=== PATIENT | female | born 1975 | race Caucasian/White ===

== ENCOUNTER 2025-01-26 12:10 | Outpatient (CLI) | payer OTHER, SELFPAY | END 2025-01-26 12:11 | disposition home or self-care (01) | LOC: AMB 02-14 04:08 | PROVIDERS: Visit Provider Family Medicine | DX: S39.91XA Unspecified injury of abdomen, initial encounter (principal); V43.63XA Car passenger injured in collision with pick-up truck in traffic accident, initial encounter; Y92.410 Unspecified street and highway as the place of occurrence of the external cause | CPT/HCPCS: A0425; A0433 ==